=== PATIENT | female | born 1950 | race Caucasian/White ===

== ENCOUNTER 2016-10-15 11:38 | Emergency (ER) | payer MEDICARE, OTHER ==
[2016-10-15 11:28] LABS: BILIRUBIN NEGATIVE (NEGATIVE); BLOOD TRACE-LYSED Ery/uL (NEGATIVE); CLARITY CLEAR (CLEAR); COLOR YELLOW (YELLOW); GLUCOSE (U) NORMAL (NORMAL); KETONE (U) NEGATIVE (NEGATIVE); LEUKOCYTES 2+ Leu/uL (NEGATIVE); NITRITE NEGATIVE (NEGATIVE); PROTEIN NEGATIVE (NEGATIVE); UROBILINOGEN 0.2 mg/dL (0.2-1.0); pH 7.5 (5.0-9.0)
[2016-10-15 11:31] LABS: BACTERIA 2+
[2016-10-15 11:32] LABS: MUCOUS TRACE
== END 2016-10-15 12:05 | disposition home or self-care (01) ==
LOC: FER 11:38
PROVIDERS: Internal Medicine
DX: N39.0 Urinary tract infection, site not specified (principal); S93.401A Sprain of unspecified ligament of right ankle, initial encounter; I10 Essential (primary) hypertension; M19.90 Unspecified osteoarthritis, unspecified site; M81.0 Age-related osteoporosis without current pathological fracture; E78.5 Hyperlipidemia, unspecified; Z88.8 Allergy status to other drugs, medicaments and biological substances; Z79.82 Long term (current) use of aspirin; Z79.52 Long term (current) use of systemic steroids; Z79.899 Other long term (current) drug therapy
CPT/HCPCS: 81001; J1885

== ENCOUNTER 2020-12-03 11:41 | Emergency (ER) | payer MEDICARE ==
[~2020-12-03 11:41] MED LIST: ASPIRIN CHEWABL81 MG PO; ASPIRIN EC81 MG PO; CYCLOBENZAPRINE5 MG PO; FLEXERIL5 MG PO; HCTZ12.5 MG PO; PEPCID AC20 MG PO; PREDNISONE5 MG PO; PRILOSEC20 MG PO; PRINIVIL10 MG PO; PROVENTIL2 MG/5 ML PO; PROZAC10 MG PO; PROZAC20 MG PO; TOPROL XL 25MG25 MG PO; TRAZODONE 100M100 MG PO; VITAMIN D-40010 MCG PO; VITAMIN D31000 UNIT PO; VOLTAREN **OUT50 MG PO; ZESTRIL5 MG PO; ZOCOR10 MG PO; ZOCOR20 MG PO
[2020-12-03 12:47] LABS: BILIRUBIN NEGATIVE (NEGATIVE); BLOOD NEGATIVE Ery/uL (NEGATIVE); CLARITY CLEAR (CLEAR); COLOR YELLOW (YELLOW); GLUCOSE (U) NORMAL (NORMAL); LEUKOCYTES NEGATIVE Leu/uL (NEGATIVE); NITRITE NEGATIVE (NEGATIVE); PROTEIN NEGATIVE (NEGATIVE); SPECIFIC GRAVITY <=1.005 (1.001-1.030); UROBILINOGEN 0.2 mg/dL (0.2-1.0); pH 6.5 (5.0-9.0)
[2020-12-03] MEDS ORDERED: MOBIC7.5 M1 PO (15:51)
== END 2020-12-03 16:17 | disposition home or self-care (01) ==
LOC: FER 11:41
PROVIDERS: Emergency Medicine
DX: S39.012A Strain of muscle, fascia and tendon of lower back, initial encounter (principal); M47.816 Spondylosis without myelopathy or radiculopathy, lumbar region; I10 Essential (primary) hypertension; Z88.5 Allergy status to narcotic agent; Z88.8 Allergy status to other drugs, medicaments and biological substances; X58.XXXA Exposure to other specified factors, initial encounter
CPT/HCPCS: 72110; 81003

== ENCOUNTER 2021-01-24 00:08 | Emergency (ER) | payer MEDICARE, OTHER ==
[~2021-01-24 00:08] MED LIST changes: +MOBIC7.5 M1 PO
[2021-01-24 00:50] LABS: BASOPHIL 0.9 % (0-2); EOSINOPHIL 5.6 % (0-7); HCT 41.9 % (37.0-47.0); HGB 13.9 g/dl (12.5-16.0); MCH 28.5 pg (25.0-31.0); MCHC 33.2 g/dL (32.0-36.0); MONOCYTE 9.9 % (0-12); MPV 10.1 fL (6.0-9.5); NEUTROPHIL 67.9 % (41-80); NRBC 0; PLT 251 K/uL (150-400); RBC 4.87 M/uL (4.20-5.40); RDW 13.3 % (11.5-14.0); WBC 8.8 K/uL (4.0-10.5)
[2021-01-24 01:10] LABS: PRO-BNP 614 pg/mL (<125)
[2021-01-24 01:39] LABS: ALBUMIN 3.7 g/dL (3.4-5.0); BILIRUBIN - TOTAL 0.3 mg/dL (0.2-1.0); BUN/CREAT RATIO (CALC) 22.5 RATIO; CREATININE 0.8 mg/dL (0.51-0.95); FT4 (FREE T4) 1.1 ng/dL (0.76-1.46); GLOBULIN (CALCULATION) 3.6 g/dL; POTASSIUM 3.9 mmol/L (3.5-5.1); TOTAL PROTEIN 7.3 g/dL (6.4-8.2)
[2021-01-24 03:11] LABS: BILIRUBIN NEGATIVE (NEGATIVE); BLOOD NEGATIVE Ery/uL (NEGATIVE); CLARITY CLEAR (CLEAR); COLOR YELLOW (YELLOW); GLUCOSE (U) NORMAL (NORMAL); LEUKOCYTES NEGATIVE Leu/uL (NEGATIVE); NITRITE NEGATIVE (NEGATIVE); PROTEIN NEGATIVE (NEGATIVE); UROBILINOGEN 0.2 mg/dL (0.2-1.0)
== END 2021-01-24 12:22 | disposition other institution (70) ==
LOC: FER 00:08
PROVIDERS: Emergency Medicine Emergency Medical Services
DX: S22.42XA Multiple fractures of ribs, left side, initial encounter for closed fracture (principal); S00.83XA Contusion of other part of head, initial encounter; I49.9 Cardiac arrhythmia, unspecified; R55 Syncope and collapse; I10 Essential (primary) hypertension; J45.909 Unspecified asthma, uncomplicated; E78.5 Hyperlipidemia, unspecified; Z79.82 Long term (current) use of aspirin; Z87.891 Personal history of nicotine dependence; Z88.5 Allergy status to narcotic agent; Z88.8 Allergy status to other drugs, medicaments and biological substances; W19.XXXA Unspecified fall, initial encounter; Z20.822 Contact with and (suspected) exposure to COVID-19
CPT/HCPCS: 36415; 70450; 70486; 71045; 71275; 72125; 80053; 81003; 82550; 83880; 84439; 84443; 84484; 85025; 85379; 93005; J0461; J2405; J7030; J7040; Q9967; U0002

== ENCOUNTER 2021-07-05 12:20 | Emergency (ER) | payer MEDICARE, OTHER ==
[2021-07-05 12:52] LABS: BILIRUBIN NEGATIVE (NEGATIVE); BLOOD NEGATIVE Ery/uL (NEGATIVE); CLARITY CLEAR (CLEAR); COLOR YELLOW (YELLOW); GLUCOSE (U) NORMAL (NORMAL); LEUKOCYTES NEGATIVE Leu/uL (NEGATIVE); NITRITE NEGATIVE (NEGATIVE); PROTEIN NEGATIVE (NEGATIVE); SPECIFIC GRAVITY 1.015 (1.001-1.030); UROBILINOGEN 0.2 mg/dL (0.2-1.0); pH 6.5 (5.0-9.0)
[2021-07-05 13:05] LABS: BACTERIA TRACE; URINARY WBC RARE
[2021-07-05] MEDS ORDERED: CYCLOBENZAPRINE10 MG PO (15:20)
[2021-07-05] MEDS ORDERED: MEDROL 4MG DOSEP4 MG PO (15:20)
== END 2021-07-05 15:55 | disposition home or self-care (01) ==
LOC: FER 12:20
PROVIDERS: Emergency Medicine
DX: S33.5XXA Sprain of ligaments of lumbar spine, initial encounter (principal); I25.2 Old myocardial infarction; Z88.5 Allergy status to narcotic agent; Z88.8 Allergy status to other drugs, medicaments and biological substances; X58.XXXA Exposure to other specified factors, initial encounter
CPT/HCPCS: 81001; 96372; 99283; J1100; J1885